=== PATIENT | male | born 1950 | race Caucasian/White ===

== ENCOUNTER 2018-03-10 15:24 | Emergency (ER) | payer MEDICARE ==
[~2018-03-10 15:24] MED LIST: Iopamidol 370 76% 100 ML VIAL ONE
[2018-03-10] MEDS ORDERED: Morphine 4 MG/ML VIAL ONE (17:03)
[2018-03-10] MEDS ORDERED: Ondansetron PF 4 MG/2 ML Vial ONE (17:03)
[2018-03-10 17:17] LABS: #Basophils 0.1 thou/uL (0.0-0.2); #Eosinphils 0.3 thou/uL (0.0-0.7); #Lymphocytes 1.3 thou/uL (1.20-3.40); #Monocytes 0.8 thou/uL (0.11-0.59); %Basophils 1.5 % (0.0-1.0); %Eosinophils 3.7 % (0.0-10.0); %Lymphocytes 17.1 % (21.0-51.0); %Monocytes 10.4 % (0.0-10.0); %Neutrophils 67.4 % (42.0-75.0); Hemoglobin 12.9 g/dL (14.0-18.0); Mean Corpuscular HGB CONC 31.7 g/dL (32.0-36.0); Mean Corpuscular Hemoglobin 29.5 pg (27.0-31.0); Mean Corpuscular Volume 92.9 fL (78.0-98.0); Mean Platelet Volume 9.2 fL (7.4-10.4); Platelet Count 218 thou/uL (130-400); Red Blood Cell (RBC) Count 4.38 mill/uL (4.70-6.10); White Blood Cell (WBC) Count 7.5 thou/uL (4.8-10.8)
[2018-03-10 17:18] LABS: Bilirubin Negative (Negative); Blood, Urine Negative (Negative); Clarity Clear (Clear); Glucose, Urine (Dipstick) Negative (Negative); Leukocyte Negative (Negative); Nitrite Negative (Negative); Protein, Urine (Dipstick) Negative (Neg-Trace); Specific Gravity, Urine 1.015 (1.005-1.030)
[2018-03-10 17:33] LABS: ALT (SGPT) 22 U/L (8-55); AST (SGOT) 22 U/L (5-34); Albumin 4.7 g/dL (3.4-4.8); Alkaline Phosphatase 85 U/L (40-150); Anion Gap 14 mmol/L (10-20); BUN (Urea Nitrogen) 16 mg/dL (8.4-25.7); Bilirubin, Total 0.6 mg/dL (0.2-1.2); Calc. Creatinine Clearance 0 mL/min (70-130); Calcium 9.9 mg/dL (7.8-10.44); Carbon Dioxide 23 mmol/L (23-31); Chloride 106 mmol/L (98-107); Estimated GFR-MDRD 66; Globulin 2.8 g/dL (2.4-3.5); Glucose 105 mg/dL (80-115); Potassium 4.3 mmol/L (3.5-5.1); Protein, Total 7.5 g/dL (5.8-8.1); Sodium 139 mmol/L (136-145)
[2018-03-10] MEDS ORDERED: Orphenadrine Citrate 60 MG/2 ML VIAL ONE (18:23)
--- NOTE | 2018-03-10 18:41 | CT ---
CT ANGIOGRAM CHEST WITH 3D RENDERING: CT ANGIOGRAM ABDOMEN WITH 3D RENDERING: HISTORY: A 67-year-old male with a history of pain, left lower back pain. The patient gives a history of prio r aortic dissection. TECHNIQUE: CT angiogram chest and abdomen performed with 3D rendering. FINDINGS: There is evidence for aneurysmal dilatation of the ascending aorta, up to 4.9 cm. No evidence for an associated dissection. Three-vessel coronary artery calcific changes are noted. There are some mil d increased markings in the posterior lower lung zones, evidence for some vascular congestion or poss ibly nonspecific interstitial change and possibly some associated dependent positioning change. No c entral pulmonary artery thrombosis. Post surgical changes of the stomach with a small hiatal hernia. No evidence of abdominal aortic aneurysm or dissection. 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 Mild scattered aortic calcific plaques. No CT evidence for acute appendicitis. Lumbar spine degener ative disease. Probable small right renal cyst. IMPRESSION: Evidence for ascending aortic aneurysmal dilatation, up to 4.9 cm. No evidence for aortic dissection of the thoracic or abdominal aorta or other significant acute process. Other findings as above. POS: [facility]
== END 2018-03-10 20:03 | disposition home or self-care (01) ==
LOC: NAV ERS 15:24
DX: M54.5 Low back pain (principal); M62.838 Other muscle spasm; I25.10 Atherosclerotic heart disease of native coronary artery without angina pectoris; F31.9 Bipolar disorder, unspecified; Z87.891 Personal history of nicotine dependence; Z79.82 Long term (current) use of aspirin; Z79.899 Other long term (current) drug therapy
CPT/HCPCS: 71275; 80053; 81003; 85025; 93005; 94760; 96374; 96375; J2270; J2360; J2405

== ENCOUNTER 2018-04-17 20:22 | Emergency (ER) | payer MEDICARE ==
[2018-04-17] MEDS ORDERED: Adacel (T-DAP) 0.5 ML SYRINGE ONE (20:49)
[2018-04-17] MEDS ORDERED: Bacitracin Zinc 1 Packet ONE (20:50)
== END 2018-04-17 21:12 | disposition home or self-care (01) ==
LOC: NAV ERS 20:22
DX: T54.3X1A Toxic effect of corrosive alkalis and alkali-like substances, accidental (unintentional), initial encounter (principal); T23.51 Corrosion of first degree of thumb (nail); I25.10 Atherosclerotic heart disease of native coronary artery without angina pectoris; F31.9 Bipolar disorder, unspecified; I71.9 Aortic aneurysm of unspecified site, without rupture; G47.30 Sleep apnea, unspecified; Z87.891 Personal history of nicotine dependence; Z87.01 Personal history of pneumonia (recurrent); Z87.442 Personal history of urinary calculi; Z79.82 Long term (current) use of aspirin; Z79.899 Other long term (current) drug therapy
CPT/HCPCS: 90471; 90715

== ENCOUNTER 2019-02-08 14:20 | Emergency (ER) | payer MEDICARE ==
[2019-02-08] MEDS ORDERED: HYDROcodone/Acetaminophen 5/325 mg Tablet ONE (14:46)
[2019-02-08] MEDS ORDERED: Dexamethasone 20 MG/5 ML VIAL ONE (14:46)
[2019-02-08] MEDS ORDERED: Ketorolac Tromethamine 30 MG/ML VIAL ONE (14:47)
--- NOTE | 2019-02-08 15:05 | RAD ---
Exam: 3 views lumbar spine HISTORY: Twisting injury. Pain. Fall. FINDINGS: 5 lumbar type vertebra. Lumbar spine vertebral body height is maintained. Straightening of normal lumbar lordosis may be due to position or muscle spasm Mild loss of disc space height and osteophyte formation at the thoracolumbar junction and at the L2-L 3 level. Vacuum disc phenomenon at L5-S1. Right pelvic surgical clips and left pelvic phleboliths are noted. IMPRESSION: 1. Degenerative changes of the lumbar spine. 2. No fracture. 3. Straightening of normal lumbar lordosis may be due to patient position or muscle spasm.
== END 2019-02-08 15:34 | disposition home or self-care (01) ==
LOC: NAV ERS 14:20
DX: M62.830 Muscle spasm of back (principal); G47.30 Sleep apnea, unspecified; I25.10 Atherosclerotic heart disease of native coronary artery without angina pectoris; F31.9 Bipolar disorder, unspecified; F17.220 Nicotine dependence, chewing tobacco, uncomplicated; Z79.82 Long term (current) use of aspirin; Z95.5 Presence of coronary angioplasty implant and graft; Z79.899 Other long term (current) drug therapy
CPT/HCPCS: 72100; 96372; J1100; J1885

== ENCOUNTER 2022-04-12 12:19 | Emergency (ER) | payer MEDICARE ==
[2022-04-12 13:43] LABS: #Basophils 0.1 thou/uL (0.0-0.2); #Eosinphils 0.6 thou/uL (0.0-0.7); #Lymphocytes 1.4 thou/uL (1.20-3.40); #Monocytes 0.7 thou/uL (0.11-0.59); #Neutrophils 4.4 thou/uL (1.40-6.50); %Basophils 1.1 % (0.0-1.0); %Eosinophils 7.9 % (0.0-10.0); %Lymphocytes 19.8 % (21.0-51.0); %Monocytes 9.3 % (0.0-10.0); Mean Corpuscular HGB CONC 32.8 g/dL (32.0-36.0); Mean Corpuscular Hemoglobin 30.3 pg (27.0-31.0); Mean Corpuscular Volume 92.3 fl (78.0-98.0); Mean Platelet Volume 7.8 fL (7.4-10.4); Platelet Count 207 10x3/uL (130-400); RBC Distribution Width 13.1 % (11.5-14.5); Red Blood Cell (RBC) Count 3.98 mill/uL (4.70-6.10); White Blood Cell (WBC) Count 7.1 10x3/uL (4.8-10.8)
[2022-04-12] MEDS ORDERED: Morphine 4 MG/ML VIAL ONE (13:44)
[2022-04-12] MEDS ORDERED: Ondansetron PF 4 MG/2 ML Vial ONE (13:44)
[2022-04-12] MEDS ORDERED: Dexamethasone 4 MG TAB ONE (13:44)
[2022-04-12 14:06] LABS: ALT (SGPT) 33 U/L (8-55); AST (SGOT) 31 U/L (5-34); Albumin 4.2 g/dL (3.4-4.8); Alkaline Phosphatase 76 U/L (40-110); Anion Gap 10 mmol/L (10-20); BUN (Urea Nitrogen) 19 mg/dL (8.4-25.7); Bilirubin, Total 0.6 mg/dL (0.2-1.2); Calc. Creatinine Clearance 0 mL/min (70-130); Calcium 9.2 mg/dL (7.8-10.44); Carbon Dioxide 24 mmol/L (23-31); Chloride 110 mmol/L (98-107); Estimated GFR 47; Glucose 107 mg/dL (83-110); Lipase 23 U/L (8-78); Potassium 4.3 mmol/L (3.5-5.1); Protein, Total 7.2 g/dL (5.8-8.1); Sodium 140 mmol/L (136-145)
== END 2022-04-12 15:50 | disposition home or self-care (01) ==
LOC: NAV ERS 12:19
DX: M54.50 Low back pain, unspecified (principal); R10.31 Right lower quadrant pain; I25.10 Atherosclerotic heart disease of native coronary artery without angina pectoris; Z79.82 Long term (current) use of aspirin; Z87.891 Personal history of nicotine dependence
CPT/HCPCS: 74177; 80053; 83690; 85025; 96374; 96375; J2270; J2405; J8540; Q9967